=== PATIENT | female | born 1995 | race African-American/Black ===

== ENCOUNTER 2024-12-21 12:23 | Inpatient (IN) | payer SELFPAY ==
[~2024-12-21] VITALS: Ht 167.6 cm; Wt 75.3 kg
[2024-12-21 12:28] VITALS: O2SAT 96
[2024-12-21 13:26] LABS: BASOPHILS % 1.3 % (0.0-2.0); EOSINOPHILS % 0.8 % (0.0-5.0); HEMATOCRIT. 42.2 % (36.0-48.0); HEMOGLOBIN. 13.7 g/dL (12.0-16.0); LYMPHOCYTES % 53.5 % (20.0-50.0); MEAN CORPUSCULAR HEMOGLOBIN 30.7 pg (28.0-32.0); MEAN CORPUSCULAR HGB CONC 32.4 g/dL (31.0-37.0); MEAN CORPUSCULAR VOLUME 94.6 fL (81.0-99.0); MEAN PLATELET VOLUME 7.5 fl (7.4-10.4); MONOCYTES % 8.6 % (2.0-8.0); NEUTROPHILS % 35.8 % (40.0-76.0); PLATELET 269 x1000/uL (130-400); RED BLOOD CELL COUNT 4.46 mill/uL (4.2-5.4); RED CELL DISTRIBUTION WIDTH 13.2 % (11.6-14.6); WHITE BLOOD COUNT 5.6 x1000/uL (4.5-11.0)
[2024-12-21 14:08] LABS: CHLORIDE 108 mEq/L (98-107); POTASSIUM 3.9 mEq/L (3.5-5.1); SODIUM 141 mEq/L (136-145)
[2024-12-21 14:09] LABS: CALCIUM 9.4 mg/dL (8.7-10.4); CARBON DIOXIDE 26 mEq/L (21-32)
[2024-12-21 14:14] LABS: CREATININE 0.8 mg/dL (0.6-1.0); GLUCOSE 91 mg/dL (70-105); HCG SCREEN NEGATIVE; UREA NITROGEN BLOOD 20 mg/dL (9-23)
[2024-12-21 14:18] LABS: ETHANOL BLOOD < 10 mg/dL (<10); TROPONIN I HIGH SENSITIVITY < 4 ng/L (3.0-34)
[2024-12-21 17:20] VITALS: BP 120/93; PULSE 74; RESP 16; TEMP 36.9; O2SAT 100
[2024-12-21] MEDS ORDERED: MELATONIN 3MG TABLET PO PRN (18:15)
[2024-12-21] MEDS ORDERED: HYDRALAZINE 20MG/ML VIAL IV PRN (18:15)
[2024-12-21] MEDS ORDERED: MAGNESIUM/ALUMINUM HYDROXIDE/SIMETHICONE 30ML UDC PO PRN (18:15)
[2024-12-21] MEDS ORDERED: ACETAMINOPHEN 325MG TABLET PO PRN (18:15)
[2024-12-21] MEDS ORDERED: GUAIFENESIN 200MG/10ML SUGAR FREE UDC PO PRN (18:15)
[2024-12-21] MEDS ORDERED: IPRATROPIUM/ALBUTEROL 0.5-3(2.5)MG/3ML NEB HHN PRN (18:15)
[2024-12-21] MEDS ORDERED: DOCUSATE SODIUM 100MG CAPSULE PO PRN (18:15)
[2024-12-21] MEDS ORDERED: ONDANSETRON HCL 4MG/2ML INJ IV PRN (18:15)
[2024-12-21 18:43] VITALS: BP 120/93; PULSE 74; RESP 16; TEMP 36.9
[2024-12-21 20:00] VITALS: BP 119/74; PULSE 64; RESP 18; TEMP 36.6; O2SAT 99
[2024-12-21] MEDS: MVI, ADULT NO.1 10 ML, FOLIC ACID 1 MG, THIAMINE HCL 100 MG in SODIUM CHLORIDE 0.9% 1,0... IV SCH (20:13)
[2024-12-22] VITALS: BP 122/77; PULSE 94; RESP 17; TEMP 36.6; O2SAT 99
[2024-12-22 04:00] VITALS: BP 123/72; PULSE 105; RESP 18; TEMP 36.6; O2SAT 99
[2024-12-22 07:53] LABS: CHLORIDE 109 mEq/L (98-107); POTASSIUM 3.7 mEq/L (3.5-5.1); SODIUM 142 mEq/L (136-145)
[2024-12-22 07:54] LABS: CARBON DIOXIDE 24 mEq/L (21-32)
[2024-12-22 07:55] LABS: CALCIUM 8.9 mg/dL (8.7-10.4)
[2024-12-22 07:59] LABS: CREATININE 0.6 mg/dL (0.6-1.0); GLUCOSE 71 mg/dL (70-105)
[2024-12-22 08:00] VITALS: BP 105/69; PULSE 98; RESP 18; TEMP 36.8; O2SAT 100
[2024-12-22 08:00] LABS: LDL CHOLESTEROL 136 mg/dL (5-100); TRIGLYCERIDE 119 mg/dL (0-150); UREA NITROGEN BLOOD 13 mg/dL (9-23)
[2024-12-22 08:02] LABS: CHOLESTEROL 214 mg/dL (<200); HDL CHOLESTEROL 52 mg/dL (>65); PHOSPHORUS 2.6 mg/dL (2.5-4.9); T4 FREE 1.14 ng/dL (0.89-1.76); THYROID STIMULATING HORMONE 0.34 uIU/mL (0.55-4.78)
[2024-12-22] MEDS: PANTOPRAZOLE SODIUM 40 MG/VIAL IV SCH (09:17)
[2024-12-22 11:56] LABS: CLARITY URINE CLOUDY (CLEAR); COLOR URINE YELLOW (YELLOW); GLUCOSE URINE NEGATIVE (NEGATIVE); KETONES URINE 1+ (NEGATIVE); LEUKOCYTE ESTERASE URINE 2+ (NEGATIVE); NITRITE URINE NEGATIVE (NEGATIVE); OCCULT BLOOD URINE NEGATIVE (NEGATIVE); PROTEIN URINE NEGATIVE (NEGATIVE); SPECIFIC GRAVITY URINE 1.019 (1.005-1.030); UROBILINOGEN URINE 0.2 E.U./dL (0.2-1.0)
[2024-12-22 12:13] LABS: *AMPHETAMINES SCREEN URINE NEGATIVE (NEGATIVE)
[2024-12-22 12:14] LABS: *BARBITURATES SCREEN URINE NEGATIVE (NEGATIVE); *BENZODIAZEPINES SCREEN URINE NEGATIVE (NEGATIVE); *COCAINE SCREEN URINE PRESUMPTIVE POSITIVE (NEGATIVE); CANNABINOID URINE SCREEN PRESUMPTIVE POSITIVE (NEGATIVE); ECSTASY MDMA SCREEN URINE NEGATIVE (NEGATIVE); METHADONE URINE SCREEN NEGATIVE (NEGATIVE); OPIATES URINE SCREEN NEGATIVE (NEGATIVE); PHENCYCLIDINE URINE SCREEN PRESUMTIVE POSITIVE (NEGATIVE)
[2024-12-22 13:20] LABS: RBC URINE 0-2 /hpf (0-2); SQUAMOUS EPITHELIAL CELL URINE 1+ /lpf (RARE/1+); YEAST URINE NONE SEEN
[2024-12-22 13:22] LABS: BACTERIA URINE 1+
== END 2024-12-22 10:30 | disposition left against medical advice (07) | DRG 52 ==
LOC: ER 12:23 → 8WST 13:58 → EDBD 13:58 → EDBEDREQTM 14:02 → EDBEDREQ 14:02
PROVIDERS: ADMIT Internal Medicine; ATTEND Internal Medicine
DX: G92.8 Other toxic encephalopathy (principal); Z53.29 Procedure and treatment not carried out because of patient's decision for other reasons
CPT/HCPCS: 36415; 71045; 80048; 80061; 80305; 80320; 81003; 83735; 84100; 84439; 84443; 84484; 84703; 85025; 93005; 93970; 99285; J2470; J3411; J3490; J7030; G0480